=== PATIENT | male | born 1975 | race Caucasian/White ===

== ENCOUNTER 2024-01-01 10:06 | Day surgery (SDC) | payer OTHER ==
[2024-01-01] MEDS: IV FLUID CONTINUATION 1,000 ML IV ONE (10:17)
[2024-01-01 10:22] VITALS: TEMP 97.4
[2024-01-01] MEDS: LACTATED RINGERS 1,000 ML IV SCH (10:29)
[2024-01-01] MEDS ORDERED: LIDOCAINE 1% INJ 10MG/ML (20 ML MDV) ONE (10:57)
[2024-01-01] MEDS ORDERED: PROPOFOL 10 MG/ML 20 ML VIAL IV ONE (10:57)
--- NOTE | 2024-01-01 11:01 | P.GSHP ---
History of Present Illness H&P Date: 01/01/24 Chief Complaint: Colon cancer screening 48-year-old male here for colonoscopy. He had his last colonoscopy 20 years ago. No bowel complaints. No family history of colon cancer. Past Medical History Past Medical History: Osteoarthritis (OA) Additional Past Medical History / Comment(s): chronic back pain History of Any Multi-Drug Resistant Organisms: None Reported Past Surgical History: Orthopedic Surgery Additional Past Surgical History / Comment(s): Lt. knee arthroscopy, Rt. hand injury repair w/ hardware Past Anesthesia/Blood Transfusion Reactions: No Reported Reaction Smoking Status: Current every day smoker - Past Family History Mother Additional Family Medical History / Comment(s): age 58 "bad heart" Medications and Allergies Home Medications Medication Instructions Recorded Confirmed Type HYDROcodone/APAP 10-325MG [Flint 1 each PO Q4HR PRN 11/04/13 01/01/24 History 10] Baclofen [Lioresal] 20 mg PO DAILY PRN 12/28/23 01/01/24 History Celecoxib [CeleBREX] 200 mg PO DAILY PRN 12/28/23 01/01/24 History Allergies Allergy/AdvReac Type Severity Reaction Status Date / Time No Known Allergies Allergy Verified 01/01/24 10:19 Surgical - Exam Vital Signs Temp Pulse Resp BP Pulse Ox 97.4 F L 64 16 127/83 94 L 01/01/24 10:21 01/01/24 10:21 01/01/24 10:21 01/01/24 10:21 01/01/24 10:21 Physical exam: General: Well-developed, well-nourished HEENT: Normocephalic, sclerae nonicteric Abdomen: Nontender, nondistended Extremities: No edema Neuro: Alert and oriented Assessment and Plan (1) Colon cancer screening Narrative/Plan: Will proceed with colonoscopy at this time. Current Visit: Yes Status: Acute Code(s): Z12.11 - ENCOUNTER FOR SCREENING FOR MALIGNANT NEOPLASM OF COLON SNOMED Code(s): 053052088
--- NOTE | 2024-01-01 11:09 | P.PCN ---
Date of Procedure: 01/01/24 Procedure(s) Performed: PREOPERATIVE DIAGNOSIS: Colon cancer screening POSTOPERATIVE DIAGNOSIS: Diverticulosis PROCEDURE: Colonoscopy ANESTHESIA: MAC SURGEON: Lobito Whiting M.D. SPECIMENS: None ENDOSCOPIC PROCEDURE: The patient was placed on the endoscopy table in the left decubitus position. The Olympus colonoscope was inserted into the anus and passed under direct visualization to the base of the cecum. The appendiceal orifice was visualized. From that point the scope was slowly withdrawn inspe cting all surfaces carefully. There were no neoplastic inflammatory or polypoid lesions throughout the cecum, ascending, transverse, descending, sigmoid and rectum. There was mild scattered diverticulosis noted. Digital rectal examination was normal. The patient was taken to the recovery room in stable condition per anesthesia guidelines. RECOMMENDATIONS: Resume diet. Repeat colonoscopy 10 years.
[2024-01-01 11:29] VITALS: BP 126/80; PULSE 68; RESP 16
== END 2024-01-01 11:45 | disposition home or self-care (01) ==
LOC: ORWHC2ENDO 10:06
PROVIDERS: ATTEND Surgery
DX: Z12.11 Encounter for screening for malignant neoplasm of colon (principal); K57.30 Diverticulosis of large intestine without perforation or abscess without bleeding; M19.90 Unspecified osteoarthritis, unspecified site; F17.200 Nicotine dependence, unspecified, uncomplicated; M54.50 Low back pain, unspecified; Z79.899 Other long term (current) drug therapy
CPT/HCPCS: 45378; J2003; J2704